=== PATIENT | male | born 1995 | race Two or more races ===

== ENCOUNTER 2017-10-13 04:15 | Emergency (ER) | payer BC, OTHER ==
[2017-10-13 04:24] VITALS: BP 133/77; PULSE 108; TEMP 98.6; O2SAT 93
--- NOTE | 2017-10-13 04:53 | EDPHY ---
H & P Stated Complaint: took acid at 6 heart feels like its racing Time Seen by Provider: 10/13/17 04:30 HPI/ROS: Chief Complaint: Palpitations HPI: 21-year-old male states that he has been feeling his heart beat rapidly ever since he took 4 hits of LSD several hours ago. Patient states that he "just does not feel right ". No chest pain. No shortness of breath. No nausea or vomiting. No abdominal pain. He has taken Devine D in the past but does not recall this sensation. Otherwise has been in his normal state health. He states he took the drug after he got off a flight from [place] to [place]. He does have a history of depression. Is not feeling depressed or suicidal at this time. He has a history of being in rehab for cocaine abuse in the past. ROS: 10 point Review of Systems is negative except as noted in the HPI. PMH: Depression Social History: Occasional smoking, occasional alcohol, occasional LSD and marijuana Family History: non-contributory Physical Exam: Gen: Awake, Alert, No Distress HEENT: Nose: no rhinorrhea Eyes: PERRLA, EOMI Mouth: Moist mucosa Neck: Supple, no JVD Chest: nontender, lungs clear to auscultation Heart: S1, S2 normal, no murmur, mildly tachycardic to 105 Abd: Soft, non-tender, no guarding Back: no CVA tenderness, no midline tenderness Ext: no edema, non-tender Skin: no rash Neuro: CN II-XII intact, Sensation grossly intact, Strength 5/5 in bilateral upper and lower extremities - Personal History Current Tetanus/Diphtheria Vaccine: Yes Current Tetanus Diphtheria and Acellular Pertussis (TDAP): Yes - Medical/Surgical History Hx Asthma: No Hx Chronic Respiratory Disease: No Hx Diabetes: No Hx Cardiac Disease: No Hx Renal Disease: No Hx Cirrhosis: No Hx Alcoholism: No Hx HIV/AIDS: No Hx Splenectomy or Spleen Trauma: No Other PMH: tonsils - Social History Smoking Status: Light smoker Constitutional: Initial Vital Signs Temperature (C) 37 C 10/13/17 04:20 Heart Rate 108 H 10/13/17 04:20 Respiratory Rate 18 10/13/17 04:20 Blood Pressure 133/77 H 10/13/17 04:20 O2 Sat (%) 93 10/13/17 04:20 O2 Delivery Mode Room Air Allergies/Adverse Reactions: No Known Allergies Allergy (Unverified 10/13/17 04:19) Home Medications: Medication Instructions Recorded Accutane 10/13/17 Sertraline HCl [Zoloft 100mg (*)] 100 mg PO DAILY 10/13/17 Departure - Departure Disposition: Home, Routine, Self-Care Clinical Impression: Polysubstance abuse Condition: Good Instructions: Polysubstance Abuse (ED) Referrals: NONE *PRIMARY CARE P,. [Primary Care Provider] - As per Instructions
[2017-10-13 05:01] VITALS: RESP 16
== END 2017-10-13 05:02 | disposition home or self-care (01) ==
DX: F16.10 Hallucinogen abuse, uncomplicated (principal); F17.200 Nicotine dependence, unspecified, uncomplicated